=== PATIENT | male | born 1975 | race Caucasian/White ===

== ENCOUNTER 2019-03-27 14:49 | Inpatient (IN) | payer OTHER ==
[2019-03-27 18:10] VITALS: BMI 30.1
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
[2019-03-27] MEDS ORDERED: BISMUTH SUBSALICYLATE 524 MG/30 ML UD PO PRN (18:50)
[2019-03-27] MEDS ORDERED: MAGNESIUM CITRATE 300 ML BOTTLE PO PRN (18:50)
[2019-03-27] MEDS ORDERED: ACETAMINOPHEN 325 MG TABLET (FP) PO PRN ×2 (18:50)
[2019-03-27] MEDS ORDERED: MAG HYDROX/AL HYDROX/SIMETH 30 ML UNIT-DOSE CUP PO PRN (18:50)
[2019-03-27] MEDS ORDERED: MAGNESIUM HYDROX 2400MG/30ML ORAL SUSPENSION 30 ML CUP PO PRN (18:50)
[2019-03-27] MEDS ORDERED: MENTHOL/PHENOL 1 EACH UD MM PRN (18:50)
[2019-03-27] MEDS ORDERED: chlordiazePOXIDE HCL 25 MG CAPSULE PO PRN (18:50)
[2019-03-27] MEDS ORDERED: IBUPROFEN 400 MG TABLET (FP) PO PRN (18:50)
[2019-03-27] MEDS: chlordiazePOXIDE HCL 25 MG CAPSULE PO SCH (20:49)
[2019-03-27] MEDS: hydrOXYzine PAMOATE 25 MG CAPSULE (FP) PO PRN (20:49)
[2019-03-27] MEDS: THIAMINE HCL 100 MG TABLET (FP) PO SCH (21:15)
[2019-03-27] MEDS ORDERED: chlordiazePOXIDE HCL 25 MG CAPSULE PO SCH (23:00)
[2019-03-28] MEDS: chlordiazePOXIDE HCL 25 MG CAPSULE PO SCH ×3 (06:03→22:30)
[2019-03-28] MEDS: PRENATAL VITAMINS W/ FOLIC ACID TABLET (FP) PO SCH (10:57)
[2019-03-28 11:11] LABS: HEMATOCRIT 43.6 % (35.4-49); MCH 30.7 pg (25.7-33.7); MCHC 34.4 g/dl (32.0-35.9); MEAN CELL VOLUME 89.2 fl (80-96); MEAN PLT VOLUME 9.6 fl (7.5-11.1); PLATELET COUNT 124 K/MM3 (134-434); RBC 4.88 M/mm3 (4.00-5.60); RDW 14.2 % (11.9-15.9)
[2019-03-28 11:22] LABS: ALBUMIN 3.4 g/dl (3.4-5.0); BILIRUBIN,TOTAL 0.4 mg/dL (0.2-1); BLOOD UREA NITROGEN 14.7 mg/dL (7-18); CALCIUM 8.7 mg/dL (8.5-10.1); CREATININE 1.1 mg/dL (0.55-1.3); POTASSIUM 3.6 mmol/L (3.5-5.1); TOT PROT 5.9 g/dl (6.4-8.2)
[2019-03-28] MEDS: NICOTINE 21 MG/24 HOURS TOPICAL PATCH TD SCH (12:32)
--- NOTE | 2019-03-28 14:29 | PN ---
[facility] CIWA - CIWA Score Nausea/Vomitin-No Nausea/No Vomiting Muscle Tremors: None Anxiety: 3 Agitation: 1-Slight > Activity Paroxysmal Sweats: 3 Orientation: 0-Oriented Tacttile Disturbances: 1-Very Mild Itch/Numbness Auditory Disturbances: 0-None Visual Disturbances: 0-None Headache: 2-Mild CIWA-Ar Total Score: 10 S Progress Note (SOAP) Subjective: c/o headache, sweats, anxiety, and interrupted sleep. Objective: 03/28/19 14:29 Vital Signs 03/28/19 13:55 Temperature 97.6 F Pulse Rate 84 Respiratory 18 Rate Blood Pressure 149/74 Lab Results WBC 4.0 K/mm3 (4.0-10.0) 03/28/19 08:10 RBC 4.88 M/mm3 (4.00-5.60) 03/28/19 08:10 Hgb 15.0 GM/dL (11.7-16.9) 03/28/19 08:10 Hct 43.6 % (35.4-49) 03/28/19 08:10 MCV 89.2 fl (80-96) 03/28/19 08:10 MCHC 34.4 g/dl (32.0-35.9) 03/28/19 08:10 RDW 14.2 % (11.9-15.9) 03/28/19 08:10 Plt Count 124 K/MM3 (134-434) L 03/28/19 08:10 Sodium 140 mmol/L (136-145) 03/28/19 08:10 Potassium 3.6 mmol/L (3.5-5.1) 03/28/19 08:10 Chloride 106 mmol/L (98-107) 03/28/19 08:10 Carbon Dioxide 27 mmol/L (21-32) 03/28/19 08:10 Anion Gap 6 MMOL/L (8-16) L 03/28/19 08:10 BUN 14.7 mg/dL (7-18) 03/28/19 08:10 Creatinine 1.1 mg/dL (0.55-1.3) 03/28/19 08:10 Random Glucose 143 mg/dL (74-106) H 03/28/19 08:10 Calcium 8.7 mg/dL (8.5-10.1) 03/28/19 08:10 Labs noted. Assessment: 03/28/19 14:29 AOX3, in no acute respiratory distress. Full ROM, ambulating in the unit. Withdrawal symptoms. Plan: continue detox.
[2019-03-28] MEDS: chlordiazePOXIDE HCL 10 MG CAPSULE PO PRN (18:15)
[2019-03-28] MEDS: MELATONIN 5 MG TABLETS PO PRN (22:29)
[2019-03-28] MEDS: THIAMINE HCL 100 MG TABLET (FP) PO SCH (22:29)
[2019-03-29] MEDS ORDERED: chlordiazePOXIDE HCL 25 MG CAPSULE PO SCH (05:00)
[2019-03-29] MEDS: chlordiazePOXIDE HCL 10 MG CAPSULE PO SCH ×3 (05:48→22:35)
[2019-03-29] MEDS: PRENATAL VITAMINS W/ FOLIC ACID TABLET (FP) PO SCH (10:42)
[2019-03-29] MEDS: NICOTINE 21 MG/24 HOURS TOPICAL PATCH TD SCH (10:42)
[2019-03-29] MEDS: chlordiazePOXIDE HCL 10 MG CAPSULE PO PRN (10:43)
[2019-03-29] MEDS: hydrOXYzine PAMOATE 25 MG CAPSULE (FP) PO PRN (10:43)
--- NOTE | 2019-03-29 17:22 | PN ---
S CIWA - CIWA Score Nausea/Vomitin-Mild Nausea/No Vomiting Muscle Tremors: 3 Anxiety: 1-Mildly Anxious Agitation: 0-Normal Activity Paroxysmal Sweats: 3 Orientation: 0-Oriented Tacttile Disturbances: 0-None Auditory Disturbances: 0-None Visual Disturbances: 0-None Headache: 0-None Present CIWA-Ar Total Score: 8 BHS Progress Note (SOAP) Subjective: shakes sweats Objective: 03/29/19 17:22 A & ox 3 In no acute distress Vital Signs Temperature 98.1 F 03/29/19 16:47 Pulse Rate 78 03/29/19 16:47 Respiratory Rate 18 03/29/19 16:47 Blood Pressure 127/78 03/29/19 16:47 O2 Sat by Pulse Oximetry (%) Assessment: 03/29/19 17:23 withdrawal sx Plan: continue detox increase hydration
[2019-03-29] MEDS: MELATONIN 5 MG TABLETS PO PRN (22:34)
[2019-03-29] MEDS: THIAMINE HCL 100 MG TABLET (FP) PO SCH (22:35)
[2019-03-30] MEDS ORDERED: chlordiazePOXIDE HCL 10 MG CAPSULE PO PRN
[2019-03-30] MEDS ORDERED: chlordiazePOXIDE HCL 10 MG CAPSULE PO SCH (05:00)
[2019-03-30] MEDS ORDERED: chlordiazePOXIDE HCL 10 MG CAPSULE PO ONE (05:00)
[2019-03-30 09:19] VITALS: BP 112/71; PULSE 92; TEMP 98
--- NOTE | 2019-03-30 09:33 | DS ---
[facility] Detox Discharge Summary Admission Date: 03/27/19 Discharge Date: 03/30/19 - History Present History: Alcohol Dependence - Physical Exam Results Vital Signs: Vital Signs Temperature 98.0 F 03/30/19 09:17 Pulse Rate 92 H 03/30/19 09:17 Respiratory Rate 18 03/30/19 09:17 Blood Pressure 112/71 03/30/19 09:17 O2 Sat by Pulse Oximetry (%) Pertinent Admission Physical Exam Findings: pt arrived in withdrawals Laboratory Tests 03/28/19 03/28/19 03/28/19 08:10 08:10 08:10 WBC 4.0 RBC 4.88 Hgb 15.0 Hct 43.6 MCV 89.2 MCH 30.7 MCHC 34.4 RDW 14.2 Plt Count 124 L MPV 9.6 Sodium 140 Potassium 3.6 Chloride 106 Carbon Dioxide 27 Anion Gap 6 L BUN 14.7 Creatinine 1.1 Est GFR (CKD-EPI)AfAm 93.47 Est GFR (CKD-EPI)NonAf 80.64 Random Glucose 143 H Calcium 8.7 Total Bilirubin 0.4 AST 23 ALT 46 Alkaline Phosphatase 61 Total Protein 5.9 L Albumin 3.4 RPR Titer Nonreactive today pt is aaox3 ambulating no acute distress no s/s of withdrawals - Treatment Hospital Course: Detox Protocol Followed, Detoxed Safely, Responded well, Discharged Condition Good, Rehab Referral Accepted Patient has Accepted a Rehab Referral to: pt declined rehab; referral provided - Medication Discharge Medications: Ambulatory Orders NK [No Known Home Medication] 03/27/19 - Diagnosis (1) Alcohol use disorder, severe, dependence Current Visit: Yes Status: Chronic (2) Nicotine dependence Current Visit: Yes Status: Chronic Qualifiers: Nicotine product type: cigarettes Substance use status: uncomplicated Qualified Code(s): F17.210 - Nicotine dependence, cigarettes, uncomplicated - AMA Did Patient Leave Against Medical Advice: No
[2019-03-31] MEDS ORDERED: chlordiazePOXIDE HCL 10 MG CAPSULE PO SCH (05:00)
[2019-04-01] MEDS ORDERED: chlordiazePOXIDE HCL 10 MG CAPSULE PO ONE (05:00)
== END 2019-03-30 09:30 | disposition home or self-care (01) | DRG 775 ==
LOC: YASAS 14:49 → Y6N 19:16
PROVIDERS: ADMIT Allergy & Immunology; ATTEND Allergy & Immunology
PROC: HZ2ZZZZ Detoxification Services for Substance Abuse Treatment (ICD-10-PCS; principal; 2019-03-27)
DX: F10.230 Alcohol dependence with withdrawal, uncomplicated (principal); F17.210 Nicotine dependence, cigarettes, uncomplicated; M16.12 Unilateral primary osteoarthritis, left hip
CPT/HCPCS: 36415; 80053; 85027; 86593